=== PATIENT | male | born 1945 | race Caucasian/White ===

== ENCOUNTER 2020-04-27 14:29 | Observation (INO) ==
[2020-04-27] MEDS ORDERED: NS 0.9% 1000 ml BAG 1,000 ML IV ONE (15:43)
[2020-04-27 16:26] LABS: ABS Lymphocytes 0.3 10^3/ul (1.0-4.8); ABS Monocytes 0.3 10^3/ul (0-0.8); ABS Neutrophils 5.3 10^3/ul (1.5-7.7); Eosinophil % 0.1 %; Hematocrit 33 % (42-52); Hemoglobin 10.9 g/dL (14.0-18.0); Lymphocyte % 4.4 %; Mean Corpuscular HGB Conc 34 g/dL (31-36); Mean Corpuscular Hemoglobin 31 pg (27-31); Mean Corpuscular Volume 92 fL (80-94); Mean Platelet Volume 7.7 fL (7.4-10.4); Platelet Count 207 10^3/uL (150-450); Red Blood Count 3.53 10^6 /uL (4.18-5.48); Red Cell Distribution Width 17 % (10-15); White Blood Count 5.9 10^3/uL (3.5-10.8)
[2020-04-27 16:41] LABS: Albumin 3.5 g/dL (3.2-5.2); Albumin/Globulin Ratio 1.1 (1-3); BUN/Creatinine Ratio 26.9 (8-20); Calcium 9.4 mg/dL (8.6-10.3); EGFR African American 139.2 (>60); Globulin 3.3 g/dL (2-4); Magnesium 1.6 mg/dL (1.9-2.7); Total Bilirubin 0.9 mg/dL (0.2-1.0); Total Protein 6.8 g/dL (6.4-8.9)
[2020-04-27] MEDS ORDERED: Magnesium Sulfate 2 gm BAG 2 GM/50 ML BAG IVPB ONE (16:54)
[2020-04-27] MEDS ORDERED: Iodixanol (CONTRAST) 320 MG/ML 100 ML SDV IV ONE (17:01)
[2020-04-27 19:26] LABS: Troponin I 0.01 ng/mL (<0.03)
[2020-04-27] MEDS ORDERED: Senna TAB 8.6 mg TAB PO PRN (19:51)
[2020-04-27] MEDS ORDERED: Sodium Phosphate ADULT ENEMA 133 ML BTL PR PRN (19:51)
[2020-04-27] MEDS ORDERED: Magnesium Hydroxide LIQ 30 ML UDC PO PRN (19:51)
[2020-04-27] MEDS ORDERED: Polyethylene Glycol 3350 17 GM PACKET PO PRN (19:51)
[2020-04-27] MEDS: GLIMEPIRIDE 4 MG PO SCH (22:05)
[2020-04-27] MEDS: Lactulose 30 ml UDC PO SCH (22:06)
[2020-04-27] MEDS: Enoxaparin 40 MG/0.4 ML SYR SUBCUT SCH (22:06)
[2020-04-27] MEDS: NS 0.9% 1000 ml BAG 1,000 ML IV SCH (22:09)
[2020-04-28 06:41] LABS: ABS Lymphocytes 0.3 10^3/ul (1.0-4.8); ABS Monocytes 0.3 10^3/ul (0-0.8); ABS Neutrophils 4.1 10^3/ul (1.5-7.7); Eosinophil % 0.3 %; Hematocrit 28 % (42-52); Hemoglobin 9.5 g/dL (14.0-18.0); Lymphocyte % 5.4 %; Mean Corpuscular HGB Conc 33 g/dL (31-36); Mean Corpuscular Hemoglobin 31 pg (27-31); Mean Corpuscular Volume 92 fL (80-94); Mean Platelet Volume 7.8 fL (7.4-10.4); Platelet Count 176 10^3/uL (150-450); Red Blood Count 3.09 10^6 /uL (4.18-5.48); Red Cell Distribution Width 17 % (10-15); White Blood Count 4.7 10^3/uL (3.5-10.8)
[2020-04-28] MEDS: SPIRIVA Respimat (tiotropium) 2.5 mcg/inh Inhaler INH SCH (07:56)
[2020-04-28] MEDS: Aspirin EC 81 mg TAB.EC (enteric coated) PO SCH (09:05)
[2020-04-28] MEDS: GLIMEPIRIDE 4 MG PO SCH (09:06)
[2020-04-28] MEDS: Lactulose 30 ml UDC PO SCH ×2 (09:06→12:07)
[2020-04-28] MEDS: NS 0.9% 1000 ml BAG 1,000 ML IV SCH (09:08)
[2020-04-28] MEDS: CMCS:Glimepiride 2 mg TAB (NF) PO SCH (20:15)
[2020-04-28] MEDS: Enoxaparin 40 MG/0.4 ML SYR SUBCUT SCH (20:16)
[2020-04-29 02:19] LABS: Calcium 8.4 mg/dL (8.6-10.3); Potassium 3.7 mmol/L (3.5-5.0)
[2020-04-29 02:24] LABS: BUN/Creatinine Ratio 24.2 (8-20); EGFR African American 152.2 (>60); EGFR Non-African American 125.8 (>60)
[2020-04-29 06:40] LABS: ABS Eosinophils 0.1 10^3/ul (0-0.6); ABS Lymphocytes 0.6 10^3/ul (1.0-4.8); ABS Monocytes 0.4 10^3/ul (0-0.8); ABS Neutrophils 2.6 10^3/ul (1.5-7.7); Eosinophil % 1.9 %; Hematocrit 29 % (42-52); Hemoglobin 9.6 g/dL (14.0-18.0); Lymphocyte % 16.7 %; Mean Corpuscular HGB Conc 33 g/dL (31-36); Mean Corpuscular Hemoglobin 31 pg (27-31); Mean Corpuscular Volume 93 fL (80-94); Mean Platelet Volume 7.8 fL (7.4-10.4); Platelet Count 176 10^3/uL (150-450); Red Cell Distribution Width 17 % (10-15); White Blood Count 3.7 10^3/uL (3.5-10.8)
[2020-04-29 07:01] LABS: BUN/Creatinine Ratio 20.3 (8-20); Calcium 8.7 mg/dL (8.6-10.3); EGFR African American 161.2 (>60); EGFR Non-African American 133.2 (>60); Magnesium 1.9 mg/dL (1.9-2.7); Potassium 3.1 mmol/L (3.5-5.0)
[2020-04-29] MEDS: SPIRIVA Respimat (tiotropium) 2.5 mcg/inh Inhaler INH SCH (08:01)
[2020-04-29] MEDS: CMCS:Glimepiride 2 mg TAB (NF) PO SCH (10:47)
[2020-04-29] MEDS: Aspirin EC 81 mg TAB.EC (enteric coated) PO SCH (10:47)
[2020-04-29 10:52] VITALS: BP 125/76
[2020-04-29] MEDS ORDERED: Potassium Chloride LIQUID 20 MEQ/15 ML LIQUID PO ONE ×2 (11:05)
== END 2020-04-29 17:16 | disposition home or self-care (01) ==
LOC: MEDTELE 14:29 → ED 14:29 → MEDTELE 21:30
PROVIDERS: ADMIT Student in an Organized Health Care Education/Training Program; ATTEND Hospitalist

== ENCOUNTER 2020-10-12 06:25 | Observation (INO) ==
[2020-10-12 07:48] LABS: Platelet Count 271 10^3/uL (150-450)
[2020-10-12] MEDS ORDERED: Midazolam 2 mg/2 ml VIAL 1 mg/ml 2 ml VIAL (2 mg) ONE (07:53)
[2020-10-12] MEDS ORDERED: ceFAZolin 1 GM ADVAN 1 GM ADDV.VIAL IVPB ONE (07:53)
[2020-10-12] MEDS ORDERED: fentaNYL 100 mcg/2 ml 50 MCG/ML VIAL ONE (07:54)
[2020-10-12] MEDS ORDERED: Bupivacaine 0.5% SDV PF 30ML VIAL ONE (07:56)
[2020-10-12] MEDS ORDERED: Lidocaine 2% JELLY 6 ML TOPICAL ONE (07:59)
[2020-10-12 08:00] LABS: INR 1.07 (0.86-1.15)
[2020-10-12] MEDS ORDERED: Morphine 2 MG/ML SYRINGE IV PRN (09:03)
[2020-10-12] MEDS ORDERED: Ondansetron 4 mg VIAL 2 MG/ML 2 ml VIAL IV PRN (09:03)
[2020-10-12] MEDS: NS 0.9% 1000 ml BAG 1,000 ML IV SCH ×2 (11:15→21:10)
[2020-10-13 06:45] LABS: ABS Eosinophils 0.2 10^3/ul (0-0.6); ABS Lymphocytes 0.4 10^3/ul (1.0-4.8); ABS Monocytes 0.9 10^3/ul (0-0.8); ABS Neutrophils 1.7 10^3/ul (1.5-7.7); Eosinophil % 6.1 %; Hematocrit 26 % (42-52); Hemoglobin 8.5 g/dL (14.0-18.0); Lymphocyte % 11.2 %; Mean Corpuscular HGB Conc 33 g/dL (31-36); Mean Corpuscular Hemoglobin 28 pg (27-31); Mean Corpuscular Volume 86 fL (80-94); Nucleated Red Blood Cells % 0.1; Platelet Count 261 10^3/uL (150-450); Red Blood Count 2.99 10^6 /uL (4.18-5.48); Red Cell Distribution Width 23 % (10-15); White Blood Count 3.1 10^3/uL (3.5-10.8)
[2020-10-13 07:02] LABS: Albumin 2.3 g/dL (3.2-5.2); Albumin/Globulin Ratio 0.7 (1-3); EGFR African American 182.4 (>60); EGFR Non-African American 150.8 (>60); Globulin 3.1 g/dL (2-4); Potassium 3.5 mmol/L (3.5-5.0); Total Bilirubin 0.4 mg/dL (0.2-1.0); Total Protein 5.4 g/dL (6.4-8.9)
[2020-10-13] MEDS: NS 0.9% 1000 ml BAG 1,000 ML IV SCH (07:27)
[2020-10-13] MEDS ORDERED: SPIRIVA Respimat (tiotropium) 2.5 mcg/inh Inhaler INH SCH (09:00)
[2020-10-13] MEDS ORDERED: Pantoprazole VIAL 40 MG VIAL IV SCH (09:00)
[2020-10-13 12:31] VITALS: BP 146/65
== END 2020-10-13 13:05 | disposition home or self-care (01) ==
LOC: SSU 06:25 → SP 06:25
PROVIDERS: ADMIT Internal Medicine Medical Oncology; ATTEND Internal Medicine Hematology & Oncology

== ENCOUNTER 2020-10-31 22:03 | Inpatient (IN) ==
[2020-10-31] MEDS ORDERED: methylPREDNISolone 125 mg 2 ML VIAL IV ONE (23:06)
[2020-10-31] MEDS ORDERED: Albuterol 2.5mg/3 ml (0.083%) NEB.SOLN INH ONE (23:07)
[2020-11-01] MEDS ORDERED: Azithromycin 500 mg/250 ml NS 500 MG/250 ML BAG IVPB ONE (01:34)
[2020-11-01] MEDS ORDERED: cefTRIAXone 1 gm/50 mL NS BAG 1 GM/50 ML BAG IV ONE (01:34)
[2020-11-01] MEDS ORDERED: Iodixanol (CONTRAST) 320 MG/ML 100 ML SDV IV ONE (02:35)
[2020-11-01] MEDS ORDERED: HYDROcodone/ACET. 7.5/325 LIQ 15 ML UDC FEED TUBE PRN (02:41)
[2020-11-01] MEDS ORDERED: Magnesium Sulfate 2 gm BAG 2 GM/50 ML BAG IVPB ONE (03:51)
[2020-11-01] MEDS: Ondansetron ODT 4 mg TAB 4 MG TAB PO SCH ×4 (04:02→20:40)
[2020-11-01] MEDS ORDERED: Piperacillin/Tazobac ADVAN 3.375 GM in NS 0.9% 100 ml BAG 100 ML IV ONE (04:58)
[2020-11-01] MEDS ORDERED: Zosyn per Pharmacy NOTE FOLLOW UP SCH (05:00)
[2020-11-01] MEDS ORDERED: Albuterol 2.5mg/3 ml (0.083%) NEB.SOLN INH PRN (05:02)
[2020-11-01] MEDS: Polyethylene Glycol 3350 17 GM PACKET PO SCH (12:17)
[2020-11-01] MEDS: NS 0.9% 1000 ml BAG 1,000 ML IV SCH (12:18)
[2020-11-01 13:02] LABS: Hematocrit 26 % (42-52); Hemoglobin 8.5 g/dL (14.0-18.0); Mean Corpuscular HGB Conc 33 g/dL (31-36); Mean Corpuscular Hemoglobin 27 pg (27-31); Mean Corpuscular Volume 80 fL (80-94); Mean Platelet Volume 8.1 fL (7.4-10.4); Platelet Count 290 10^3/uL (150-450); Red Blood Count 3.19 10^6 /uL (4.18-5.48); Red Cell Distribution Width 25 % (10-15)
[2020-11-01 13:25] LABS: Calcium 8.2 mg/dL (8.6-10.3); EGFR African American 252.4 (>60); EGFR Non-African American 208.6 (>60)
[2020-11-01 13:37] LABS: Anisocytosis 2+; Hypochromasia 2+; Microcytosis 1+; Polychromasia 1+; Target Cells 1+
[2020-11-01 13:38] LABS: ABS Lymphocytes 0.2 10^3/ul (1.0-4.8); ABS Monocytes 0.7 10^3/ul (0-0.8); Lymphocyte % 6.5 %
[2020-11-01] MEDS: ZOSYN 3.375 GM Q8H per EXTENDED INFUSION IV SCH ×3 (13:46→22:40)
[2020-11-01] MEDS: Tiotropium Brom/Olodaterol MDI INH SCH (14:42)
[2020-11-01 16:22] LABS: Urine Appearance Clear; Urine Bilirubin Negative (Negative); Urine Blood 1+ (Negative); Urine Color Yellow; Urine Glucose Negative (Negative); Urine Ketones Negative (Negative); Urine Nitrite Negative (Negative); Urine Protein 1+(30 mg/dL) (Negative); Urine Specific Gravity 1.034 (1.002-1.030); Urine Urobilinogen Negative (Negative)
[2020-11-01 16:35] LABS: Urine Bacteria Absent (Absent); Urine Red Blood Cell 2+(6-10/hpf) (Absent); Urine White Blood Cell Absent (Absent)
[2020-11-01 17:28] LABS: Urine Creatinine Concentration 66.86 mg/dL; Urine Potassium Concentration 68.8 mmol/L; Urine Sodium Concentration < 18 mmol/L
[2020-11-02] MEDS: Ondansetron ODT 4 mg TAB 4 MG TAB PO SCH ×2 (01:48→07:32)
[2020-11-02] MEDS ORDERED: cefTRIAXone 1 gm/50 mL NS BAG 1 GM/50 ML BAG IVPB SCH (03:00)
[2020-11-02] MEDS ORDERED: Azithromycin 500 mg/250 ml NS 500 MG/250 ML BAG IVPB SCH (04:00)
[2020-11-02] MEDS: ZOSYN 3.375 GM Q8H per EXTENDED INFUSION IV SCH ×3 (04:56→21:23)
[2020-11-02 05:01] LABS: Hematocrit 24 % (42-52); Hemoglobin 7.9 g/dL (14.0-18.0); Mean Corpuscular HGB Conc 33 g/dL (31-36); Mean Corpuscular Hemoglobin 26 pg (27-31); Mean Corpuscular Volume 81 fL (80-94); Mean Platelet Volume 8.1 fL (7.4-10.4); Platelet Count 309 10^3/uL (150-450); Red Blood Count 2.99 10^6 /uL (4.18-5.48); Red Cell Distribution Width 25 % (10-15); White Blood Count 3.9 10^3/uL (3.5-10.8)
[2020-11-02 05:23] LABS: Calcium 8.1 mg/dL (8.6-10.3); EGFR African American 245.3 (>60); EGFR Non-African American 202.7 (>60)
[2020-11-02 05:40] LABS: Anisocytosis 2+; Polychromasia 1+
[2020-11-02 05:42] LABS: ABS Lymphocytes 0.2 10^3/ul (1.0-4.8); ABS Monocytes 1.1 10^3/ul (0-0.8); ABS Neutrophils 2.6 10^3/ul (1.5-7.7); Lymphocyte % 4.5 %; Nucleated Red Blood Cells % 0.1
[2020-11-02] MEDS: NS 0.9% 1000 ml BAG 1,000 ML IV SCH ×2 (06:09→15:47)
[2020-11-02] MEDS: Polyethylene Glycol 3350 17 GM PACKET PO SCH (07:31)
[2020-11-02] MEDS: Tiotropium Brom/Olodaterol MDI INH SCH (07:52)
[2020-11-02] MEDS ORDERED: Ondansetron ODT 4 mg TAB 4 MG TAB PO PRN (08:16)
[2020-11-02] MEDS ORDERED: COVID-19 VACCINE, AD26(JANSSEN)/PF 0.5 ML IM ONE (15:00)
[2020-11-02] MEDS ORDERED: Dextrose 50% Syringe 50 ml 25 GM/50 ML SYRINGE IV PUSH PRN (17:15)
[2020-11-02] MEDS ORDERED: Enoxaparin 40 MG/0.4 ML SYR SUBCUT SCH (18:00)
[2020-11-03] MEDS: NS 0.9% 1000 ml BAG 1,000 ML IV SCH (01:13)
[2020-11-03] MEDS: ZOSYN 3.375 GM Q8H per EXTENDED INFUSION IV SCH (05:30)
[2020-11-03] MEDS: Tiotropium Brom/Olodaterol MDI INH SCH (08:29)
[2020-11-03] MEDS: Polyethylene Glycol 3350 17 GM PACKET PO SCH (08:49)
[2020-11-03 09:34] VITALS: BP 134/56
== END 2020-11-03 11:00 | disposition home or self-care (01) | DRG 193 ==
LOC: ED 22:03 → MED 11-01 02:15
PROVIDERS: ADMIT Hospitalist; ATTEND Hospitalist

== ENCOUNTER 2020-11-15 00:57 | Inpatient (IN) ==
[2020-11-15 01:29] LABS: Hematocrit 29 % (42-52); Hemoglobin 9.3 g/dL (14.0-18.0); Mean Corpuscular HGB Conc 32 g/dL (31-36); Mean Corpuscular Hemoglobin 27 pg (27-31); Mean Corpuscular Volume 82 fL (80-94); Mean Platelet Volume 7.5 fL (7.4-10.4); Platelet Count 290 10^3/uL (150-450); Red Cell Distribution Width 26 % (10-15); White Blood Count 18.3 10^3/uL (3.5-10.8)
[2020-11-15 01:47] LABS: Albumin 2.8 g/dL (3.2-5.2); Albumin/Globulin Ratio 0.8 (1-3); C Reactive Protein 97.35 mg/L (<8.01); Calcium 8.2 mg/dL (8.6-10.3); EGFR African American 214.8 (>60); EGFR Non-African American 177.5 (>60); Globulin 3.4 g/dL (2-4); Potassium 4.1 mmol/L (3.5-5.0); Total Bilirubin 0.3 mg/dL (0.2-1.0); Total Protein 6.2 g/dL (6.4-8.9)
[2020-11-15 01:47] LABS: ABS Basophils 0.3 10^3/ul (0-0.2); ABS Lymphocytes 0.3 10^3/ul (1.0-4.8); ABS Monocytes 1.9 10^3/ul (0-0.8); ABS Neutrophils 15.8 10^3/ul (1.5-7.7); Activated Partial Thrombo Time 29.5 seconds (26.0-38.0); Eosinophil % 0.1 %; INR 1.14 (0.86-1.15); Lymphocyte % 1.8 %
[2020-11-15 01:49] LABS: Troponin I 0.02 ng/mL (<0.03)
[2020-11-15] MEDS ORDERED: Piperacillin/Tazobac ADVAN 3.375 GM in NS 0.9% 100 ml BAG 100 ML IV ONE ×2 (02:25→03:13)
[2020-11-15] MEDS ORDERED: Iohexol 350 (CONTRAST) 500 ML MDV IV ONE (02:27)
[2020-11-15] MEDS ORDERED: Vancomycin 1,000 MG in NS 0.9% 250 ml 250 ML IVPB ONE (02:29)
[2020-11-15] MEDS ORDERED: Ondansetron 4 mg VIAL 2 MG/ML 2 ml VIAL IV PRN (02:29)
[2020-11-15] MEDS ORDERED: methylPREDNISolone 125 mg 2 ML VIAL IV ONE (02:29)
[2020-11-15] MEDS ORDERED: Albuterol HFA INHALER 8 gm MDI INH ONE (02:32)
[2020-11-15] MEDS ORDERED: Dextrose 50% Syringe 50 ml 25 GM/50 ML SYRINGE IV PUSH PRN (02:33)
[2020-11-15 02:43] LABS: PCO2 Arterial 39 mmHg (35-45); PO2 Arterial 81 mmHg (80-100)
[2020-11-15] MEDS ORDERED: Vancomycin 1,000 MG in NS 0.9% 250 ml 250 ML IVPB SCH (03:00)
[2020-11-15] MEDS ORDERED: Cefepime 2 GM in Dextrose 2 GM/50 ML BAG IV SCH (03:00)
[2020-11-15] MEDS ORDERED: Vancomycin per Pharmacy 1 EA NOTE FOLLOW UP SCH (03:00)
[2020-11-15] MEDS ORDERED: Vancomycin 1,000 MG - ED ONCE IVPB ONE (03:00)
[2020-11-15] MEDS ORDERED: Azithromycin 500 MG IV - ED ONCE IVPB ONE (04:00)
[2020-11-15] MEDS ORDERED: Zosyn per Pharmacy NOTE FOLLOW UP SCH (04:00)
[2020-11-15 04:32] LABS: Ferritin 55.3 ng/mL (24-336)
[2020-11-15] MEDS: Albuterol HFA INHALER 8 gm MDI INH SCH ×4 (05:09→20:17)
[2020-11-15] MEDS: methylPREDNISolone SOD 40 mg/ml 1 ml VIAL IV SCH ×3 (05:09→21:37)
[2020-11-15] MEDS: Heparin 5000 UNITS/ML 1 mL VIAL SUBCUT SCH ×3 (06:24→21:24)
[2020-11-15] MEDS: Mometasone/Formoter 200/5 MDI INH SCH ×2 (08:50→20:17)
[2020-11-15] MEDS: Polyethylene Glycol 3350 17 GM PACKET PO SCH (09:19)
[2020-11-15] MEDS ORDERED: ZOSYN 3.375 GM x ONE DOSE over 30 miuntes IV (10:30)
[2020-11-15 10:51] LABS: Influenza A Molecular Negative (Negative); Influenza B Molecular Negative (Negative)
[2020-11-15] MEDS: ZOSYN 3.375 GM Q8H per EXTENDED INFUSION IV SCH ×2 (13:58→21:24)
[2020-11-15] MEDS ORDERED: Linezolid 600 MG IVPREMIX(*) 600 MG/300 ML BAG IVPB SCH (16:00)
[2020-11-15] MEDS ORDERED: Insulin GLARGINE 100 un/ml 10 ml VIAL SUBCUT ONE (21:37)
[2020-11-16] MEDS: Albuterol HFA INHALER 8 gm MDI INH SCH ×2 (00:12→10:02)
[2020-11-16] MEDS: Heparin 5000 UNITS/ML 1 mL VIAL SUBCUT SCH ×3 (05:21→21:09)
[2020-11-16] MEDS: methylPREDNISolone SOD 40 mg/ml 1 ml VIAL IV SCH (05:21)
[2020-11-16] MEDS: Azithromycin 500 mg/250 ml NS 500 MG/250 ML BAG IVPB SCH (05:29)
[2020-11-16 05:44] LABS: Hematocrit 25 % (42-52); Hemoglobin 7.9 g/dL (14.0-18.0); Mean Corpuscular HGB Conc 32 g/dL (31-36); Mean Corpuscular Hemoglobin 26 pg (27-31); Mean Corpuscular Volume 81 fL (80-94); Mean Platelet Volume 7.6 fL (7.4-10.4); Platelet Count 249 10^3/uL (150-450); Red Blood Count 3.06 10^6 /uL (4.18-5.48); Red Cell Distribution Width 26 % (10-15)
[2020-11-16 06:11] LABS: INR 1.05 (0.86-1.15)
[2020-11-16 06:21] LABS: Albumin 2.4 g/dL (3.2-5.2); Calcium 7.9 mg/dL (8.6-10.3); Potassium 4.1 mmol/L (3.5-5.0); Total Bilirubin 0.3 mg/dL (0.2-1.0)
[2020-11-16 06:27] LABS: Albumin/Globulin Ratio 0.9 (1-3); EGFR African American 259.9 (>60); EGFR Non-African American 214.8 (>60); Globulin 2.6 g/dL (2-4); Phosphorus 3.1 mg/dL (2.5-5.0)
[2020-11-16] MEDS: ZOSYN 3.375 GM Q8H per EXTENDED INFUSION IV SCH ×3 (07:06→23:26)
[2020-11-16] MEDS: Mometasone/Formoter 200/5 MDI INH SCH (07:33)
[2020-11-16] MEDS ORDERED: Albuterol HFA INHALER 8 gm MDI INH PRN (07:36)
[2020-11-16] MEDS: Polyethylene Glycol 3350 17 GM PACKET PO SCH (08:42)
[2020-11-17] MEDS: Mometasone/Formoter 200/5 MDI INH SCH ×3 (04:03→20:04)
[2020-11-17] MEDS: Azithromycin 500 mg/250 ml NS 500 MG/250 ML BAG IVPB SCH (05:15)
[2020-11-17] MEDS: Heparin 5000 UNITS/ML 1 mL VIAL SUBCUT SCH (07:25)
[2020-11-17] MEDS: ZOSYN 3.375 GM Q8H per EXTENDED INFUSION IV SCH ×3 (07:25→21:47)
[2020-11-17 07:51] LABS: Hematocrit 18 % (42-52); Hemoglobin 5.9 g/dL (14.0-18.0); Mean Corpuscular HGB Conc 33 g/dL (31-36); Mean Corpuscular Hemoglobin 26 pg (27-31); Mean Corpuscular Volume 81 fL (80-94); Mean Platelet Volume 7.7 fL (7.4-10.4); Platelet Count 232 10^3/uL (150-450); Red Blood Count 2.23 10^6 /uL (4.18-5.48); Red Cell Distribution Width 26 % (10-15); White Blood Count 14.4 10^3/uL (3.5-10.8)
[2020-11-17 08:01] LABS: Calcium 7.7 mg/dL (8.6-10.3); EGFR African American 267.8 (>60); EGFR Non-African American 221.3 (>60); Magnesium 1.9 mg/dL (1.9-2.7)
[2020-11-17 08:20] LABS: ABS Lymphocytes 0.4 10^3/ul (1.0-4.8); ABS Neutrophils 12.9 10^3/ul (1.5-7.7); Lymphocyte % 3.1 %
[2020-11-17 08:50] LABS: Urine Appearance Clear; Urine Bilirubin Negative (Negative); Urine Blood Negative (Negative); Urine Color Yellow; Urine Glucose Negative (Negative); Urine Ketones Negative (Negative); Urine Nitrite Negative (Negative); Urine Protein Negative (Negative); Urine Specific Gravity 1.019 (1.002-1.030); Urine Urobilinogen Negative (Negative)
[2020-11-17] MEDS ORDERED: methylPREDNISolone 125 mg 2 ML VIAL IV SCH (09:00)
[2020-11-17 09:22] LABS: Hematocrit 20 % (42-52); Hemoglobin 6.2 g/dL (14.0-18.0)
[2020-11-17] MEDS: Polyethylene Glycol 3350 17 GM PACKET PO SCH (10:15)
[2020-11-17] MEDS ORDERED: Pantoprazole VIAL 40 MG VIAL IV ONE (10:20)
[2020-11-17 15:12] LABS: Hematocrit 22 % (42-52); Hemoglobin 7.2 g/dL (14.0-18.0)
[2020-11-17 20:14] LABS: Hematocrit 28 % (42-52); Hemoglobin 8.8 g/dL (14.0-18.0)
[2020-11-18] MEDS: Azithromycin 500 mg/250 ml NS 500 MG/250 ML BAG IVPB SCH (05:48)
[2020-11-18 07:08] LABS: ABS Lymphocytes 0.7 10^3/ul (1.0-4.8); ABS Monocytes 1.1 10^3/ul (0-0.8); ABS Neutrophils 7.1 10^3/ul (1.5-7.7); Hematocrit 26 % (42-52); Hemoglobin 8.7 g/dL (14.0-18.0); Lymphocyte % 7.4 %; Mean Corpuscular HGB Conc 34 g/dL (31-36); Mean Corpuscular Hemoglobin 28 pg (27-31); Mean Corpuscular Volume 83 fL (80-94); Mean Platelet Volume 7.8 fL (7.4-10.4); Nucleated Red Blood Cells % 0.1; Platelet Count 219 10^3/uL (150-450); Red Blood Count 3.09 10^6 /uL (4.18-5.48); Red Cell Distribution Width 22 % (10-15); White Blood Count 8.8 10^3/uL (3.5-10.8)
[2020-11-18 07:21] LABS: Albumin 2.5 g/dL (3.2-5.2); Albumin/Globulin Ratio 0.9 (1-3); EGFR African American 186.5 (>60); EGFR Non-African American 154.1 (>60); Globulin 2.7 g/dL (2-4); Potassium 3.9 mmol/L (3.5-5.0); Total Bilirubin 0.5 mg/dL (0.2-1.0); Total Protein 5.2 g/dL (6.4-8.9)
[2020-11-18] MEDS ORDERED: Pantoprazole VIAL 40 MG VIAL IV SCH (09:00)
[2020-11-18] MEDS: Polyethylene Glycol 3350 17 GM PACKET PO SCH (10:10)
[2020-11-18] MEDS: ZOSYN 3.375 GM Q8H per EXTENDED INFUSION IV SCH (10:22)
[2020-11-18 13:33] VITALS: BP 125/61
== END 2020-11-18 13:23 | disposition home or self-care (01) | DRG 871 ==
LOC: ED 00:57 → EDHOLD 03:00 → ICU 07:18 → MEDTELE 11-16 18:14
PROVIDERS: ADMIT Internal Medicine; ATTEND Internal Medicine Hematology & Oncology

== ENCOUNTER 2021-02-11 10:23 | Inpatient (IN) ==
[2021-02-11] MEDS ORDERED: Cefepime 1 GM in Dextrose 1 GM/50 ML BAG IV ONE (11:25)
[2021-02-11] MEDS ORDERED: Lactated Ringers 1000 ml BAG 1,000 ML IV ONE (11:25)
[2021-02-11 12:05] LABS: Hematocrit 32 % (42-52); Hemoglobin 10.3 g/dL (14.0-18.0); Mean Corpuscular HGB Conc 33 g/dL (31-36); Mean Corpuscular Hemoglobin 28 pg (27-31); Mean Corpuscular Volume 85 fL (80-94); Mean Platelet Volume 7.9 fL (7.4-10.4); Platelet Count 278 10^3/uL (150-450); Red Blood Count 3.73 10^6 /uL (4.18-5.48); Red Cell Distribution Width 23 % (10-15); White Blood Count 25.1 10^3/uL (3.5-10.8)
[2021-02-11 12:22] LABS: Albumin 2.7 g/dL (3.2-5.2); Albumin/Globulin Ratio 0.8 (1-3); C Reactive Protein 46.01 mg/L (<8.01); Calcium 8.8 mg/dL (8.6-10.3); Globulin 3.3 g/dL (2-4); Potassium 3.7 mmol/L (3.5-5.0); Total Bilirubin 0.5 mg/dL (0.2-1.0)
[2021-02-11 12:25] LABS: Rapid COVID-19 Molecular Undetected (Undetected)
[2021-02-11] MEDS ORDERED: Iohexol 350 (CONTRAST) 500 ML MDV IV ONE (12:34)
[2021-02-11 12:46] LABS: ABS Basophils 0.1 10^3/ul (0-0.2); ABS Lymphocytes 0.3 10^3/ul (1.0-4.8); ABS Neutrophils 21.7 10^3/ul (1.5-7.7); Lymphocyte % 1.3 %
[2021-02-11 12:51] LABS: Anisocytosis 2+
[2021-02-11] MEDS ORDERED: Ondansetron 4 mg VIAL 2 MG/ML 2 ml VIAL IV PRN (15:36)
[2021-02-11] MEDS ORDERED: HYDROcodone/ACET. 7.5/325 LIQ 15 ML UDC PO PRN (15:42)
[2021-02-11] MEDS ORDERED: Albuterol HFA INHALER 8 gm MDI INH PRN (15:42)
[2021-02-11] MEDS ORDERED: NS 0.9% 1000 ml BAG 1,000 ML IV SCH (15:45)
[2021-02-11] MEDS ORDERED: [UNRECOGNIZED DRUG - OTHER] PO SCH (15:45)
[2021-02-11] MEDS ORDERED: Azithromycin 500 mg/250 ml NS 500 MG/250 ML BAG IVPB SCH (19:00)
[2021-02-11] MEDS ORDERED: cefTRIAXone 1 gm/50 mL NS BAG 1 GM/50 ML BAG IVPB SCH (21:00)
[2021-02-11] MEDS ORDERED: Enoxaparin 40 MG/0.4 ML SYR SUBCUT SCH (21:00)
[2021-02-12 05:38] LABS: Urine Appearance Clear; Urine Bilirubin Negative (Negative); Urine Blood Negative (Negative); Urine Color Yellow; Urine Glucose Negative (Negative); Urine Ketones Negative (Negative); Urine Nitrite Negative (Negative); Urine Protein 1+(30 mg/dL) (Negative); Urine Specific Gravity 1.057 (1.002-1.030); Urine Urobilinogen Negative (Negative)
[2021-02-12 05:57] LABS: Urine Bacteria Absent (Absent); Urine Red Blood Cell 1+(3-5/hpf) (Absent); Urine Squamous Epithelial Cell Present (Absent); Urine White Blood Cell Trace(0-5/hpf) (Absent)
[2021-02-12 06:04] LABS: Hematocrit 27 % (42-52); Hemoglobin 8.8 g/dL (14.0-18.0); Mean Corpuscular HGB Conc 32 g/dL (31-36); Mean Corpuscular Hemoglobin 28 pg (27-31); Mean Corpuscular Volume 87 fL (80-94); Mean Platelet Volume 7.7 fL (7.4-10.4); Platelet Count 228 10^3/uL (150-450); Red Blood Count 3.14 10^6 /uL (4.18-5.48); Red Cell Distribution Width 23 % (10-15); White Blood Count 11.6 10^3/uL (3.5-10.8)
[2021-02-12 06:19] LABS: Albumin 2.3 g/dL (3.2-5.2); Albumin/Globulin Ratio 0.8 (1-3); Calcium 8.3 mg/dL (8.6-10.3); Potassium 3.8 mmol/L (3.5-5.0); Total Bilirubin 0.3 mg/dL (0.2-1.0); Total Protein 5.3 g/dL (6.4-8.9)
[2021-02-12 06:25] LABS: ABS Lymphocytes 0.6 10^3/ul (1.0-4.8); ABS Monocytes 1.8 10^3/ul (0-0.8); ABS Neutrophils 9.1 10^3/ul (1.5-7.7); Eosinophil % 0.2 %; Lymphocyte % 5.6 %
[2021-02-12] MEDS ORDERED: SPIRIVA Respimat (tiotropium) 2.5 mcg/inh Inhaler INH SCH (09:00)
[2021-02-12 12:35] LABS: Total Iron Binding Capacity 255 mcg/dL (250-450); Transferrin 182 mg/dL (203-362)
[2021-02-12 12:37] LABS: % Iron Saturation 8 % (15-55); Iron < 20 ug/dL (50-212); Unsaturated Iron Binding < 240 ug/dL
[2021-02-12 12:54] LABS: Ferritin 40.1 ng/mL (24-336)
[2021-02-12 12:58] LABS: Vitamin B12 858 pg/mL (180-914)
[2021-02-12 18:03] VITALS: BP 154/77
== END 2021-02-12 18:45 | disposition home or self-care (01) | DRG 375 ==
LOC: ED 10:23 → EDHOLD 17:51 → MEDTELE 18:56
PROVIDERS: ADMIT Internal Medicine Hematology & Oncology; ATTEND Internal Medicine Hematology & Oncology